=== PATIENT | female | born 1960 | race Caucasian/White ===

== ENCOUNTER 2018-01-21 20:14 | Inpatient (IN) | payer BC ==
[~2018-01-21] VITALS: Ht 177.8 cm; Wt 94.0 kg
[2018-01-21 21:08] LABS: BASOPHIL % 0.1 % (0-2); PLATELET COUNT 173 x10^3mcL (130-400)
[2018-01-21 21:09] LABS: RED CELL DISTRIBUTION WIDTH 14.9 % (11.5-14.5)
[2018-01-21 21:34] LABS: T4(THYROXINE) 9.3 ug/dL (4.7-13.3)
[2018-01-21 21:40] LABS: microscopic required? NO
[2018-01-21 21:41] LABS: AMPHETAMINE QUAL UR NONE DETECTED (See below)
[2018-01-21 21:43] LABS: T3 TOTAL 0.93 ng/mL
[2018-01-21 21:50] LABS: UA SPECIFIC GRAVITY <=1.005 (1.005-1.035); urine erythrocyte NEGATIVE (NEGATIVE)
[2018-01-21 21:52] LABS: CK-MB 2.2 ng/mL (0-3.6)
[2018-01-21 21:58] LABS: ERYTHROCYTE SED RATE 36 mm/hr (0-30)
[2018-01-21 22:10] LABS: ALBUMIN 3.6 g/dL (3.4-5.0); BILIRUBIN TOTAL 0.58 mg/dL (0.20-1.00); C REACTIVE PROTEIN 4.4 mg/dL (<=0.9); CALCIUM 9.4 mg/dL (8.5-10.1); CREATININE SERUM 1.1 mg/dL (0.6-1.0); POTASSIUM SERUM 4.5 mmol/L (3.5-5.1)
[2018-01-21 22:15] LABS: FREE T4 1.13 ng/dL (0.76-1.46)
[2018-01-21 23:41] LABS: APPEARANCE CSF CLEAR; COLOR CSF COLORLESS; RBC CSF 21 /cumm (0); WBC CSF 2 /cumm (0-5)
[2018-01-21 23:42] LABS: APPEARANCE CSF CLEAR; COLOR CSF COLORLESS; RBC CSF 2 /cumm (0); WBC CSF 1 /cumm (0-5)
[2018-01-21 23:44] LABS: TOTAL PROTEIN CSF 38.7 mg/dL (15-45)
[2018-01-22] VITALS (8 sets, daily range): BP systolic 82–102; BP diastolic 49–64; Ht 177.8 cm; Wt 94.0 kg
[2018-01-22] MEDS ORDERED: SIMVASTATIN20 M1 PO ×2 (00:42→00:46)
[2018-01-22] MEDS ORDERED: LEVOTHYROXIN0.075 M2 PO ×2 (00:43→00:46)
[2018-01-22] MEDS ORDERED: ASPIR 8181 MG PO (00:43)
[2018-01-22] MEDS ORDERED: GLUCOPHAGE500 MG PO (00:43)
[2018-01-22] MEDS ORDERED: ZESTRIL5 MG PO ×2 (00:43→00:46)
[2018-01-22] MEDS ORDERED: ASPIRIN ADULT L81 M5 PO (00:45)
[2018-01-22] MEDS ORDERED: METFORMIN HCL500 MG PO (00:47)
[2018-01-22 01:08] LABS: MAGNESIUM 2.1 mg/dL (1.8-2.4); PHOSPHOROUS 3.5 mg/dL (2.5-4.9)
[2018-01-22 06:23] LABS: BASOPHIL % 0.1 % (0-2); PLATELET COUNT 173 x10^3mcL (130-400)
[2018-01-22 06:35] LABS: CALCIUM 9.3 mg/dL (8.5-10.1); CARBON DIOXIDE 32.1 mmol/L (21-32); CHLORIDE SERUM 104 mmol/L (98-107); CHOLESTEROL 139 mg/dL (<200); CHOLESTEROL/HDL RATIO 2.6; GFR1 > 60 mL/min; GLUCOSE SERUM 121 mg/dL (74-106); HDL CHOLESTEROL 54 mg/dL (40-60); MAGNESIUM 2.1 mg/dL (1.8-2.4); PHOSPHOROUS 3.8 mg/dL (2.5-4.9); POTASSIUM SERUM 3.8 mmol/L (3.5-5.1); SODIUM SERUM 144 mmol/L (136-145); TRIGLYCERIDES 125 mg/dL (<150)
[2018-01-22 07:05] LABS: RED CELL DISTRIBUTION WIDTH 15.2 % (11.5-14.5)
[2018-01-23 06:06] VITALS: BP 81/48
[2018-01-23 06:23] LABS: CALCIUM 8.7 mg/dL (8.5-10.1); CHLORIDE SERUM 110 mmol/L (98-107); CREATININE SERUM 0.9 mg/dL (0.6-1.0); GFR1 > 60 mL/min; GLUCOSE SERUM 134 mg/dL (74-106); MAGNESIUM 2.4 mg/dL (1.8-2.4); PHOSPHOROUS 3.4 mg/dL (2.5-4.9); POTASSIUM SERUM 3.7 mmol/L (3.5-5.1); SODIUM SERUM 145 mmol/L (136-145)
[2018-01-23 06:31] LABS: BASOPHIL % 0.4 % (0-2); PLATELET COUNT 151 x10^3mcL (130-400)
[2018-01-23 06:48] VITALS: BP 96/58
[2018-01-23 06:56] LABS: RED CELL DISTRIBUTION WIDTH 15.5 % (11.5-14.5)
[2018-01-23 10:12] VITALS: BP 99/58
[2018-01-23 13:06] VITALS: BP 92/58
[2018-01-23 20:23] VITALS: BP 101/61
[2018-01-24 05:27] VITALS: BP 105/69
[2018-01-24 06:36] LABS: BASOPHIL % 0.5 % (0-2); PLATELET COUNT 162 x10^3mcL (130-400)
[2018-01-24 06:37] LABS: CALCIUM 9.3 mg/dL (8.5-10.1); CARBON DIOXIDE 31.2 mmol/L (21-32); CHLORIDE SERUM 108 mmol/L (98-107); GFR1 > 60 mL/min; GLUCOSE SERUM 123 mg/dL (74-106); MAGNESIUM 2.3 mg/dL (1.8-2.4); PHOSPHOROUS 3.7 mg/dL (2.5-4.9); POTASSIUM SERUM 3.9 mmol/L (3.5-5.1); SODIUM SERUM 144 mmol/L (136-145)
[2018-01-24 09:15] VITALS: BP 117/76
[2018-01-24 09:37] VITALS: BP 94/60
[2018-01-24 12:31] VITALS: BP 105/65
[2018-01-24 16:45] VITALS: BP 103/65
[2018-01-24 19:35] VITALS: BP 103/65
== END 2018-01-24 20:32 | disposition home or self-care (01) | DRG 73 ==
LOC: ED 20:14 → DU 23:49
PROVIDERS: Family Medicine; Specialist
PROC: 009U3ZX Drainage of Spinal Canal, Percutaneous Approach, Diagnostic (ICD-10-PCS; principal; 2018-01-21)
DX: G90.8 Other disorders of autonomic nervous system (principal); J96.01 Acute respiratory failure with hypoxia; G93.41 Metabolic encephalopathy; R65.10 Systemic inflammatory response syndrome (SIRS) of non-infectious origin without acute organ dysfunction; E11.40 Type 2 diabetes mellitus with diabetic neuropathy, unspecified; E03.9 Hypothyroidism, unspecified; E78.5 Hyperlipidemia, unspecified; E78.00 Pure hypercholesterolemia, unspecified; E11.65 Type 2 diabetes mellitus with hyperglycemia; E87.8 Other disorders of electrolyte and fluid balance, not elsewhere classified; I10 Essential (primary) hypertension; Z79.82 Long term (current) use of aspirin; Z79.84 Long term (current) use of oral hypoglycemic drugs; Z79.899 Other long term (current) drug therapy; Z83.3 Family history of diabetes mellitus; Z98.891 History of uterine scar from previous surgery
CPT/HCPCS: 36600; 82962; 83880; 84439; 86788; 86789; 87804; 97110-GP; 97116-GP; 97530-GP; A9577; J0133; J0696; J1940; J2001; J2060; J3490; J7030; J7620; Q0092; Q9967